=== PATIENT | female | born 1960 | race Caucasian/White ===

== ENCOUNTER → 2025-07-03 14:18 | Outpatient (REF) | payer OTHER, SELFPAY | LOC: WDC 14:18 | PROVIDERS: ATTENDING PHYSICIAN Nurse Practitioner Family; FAMILY PHYSICIAN Internal Medicine Geriatric Medicine | DX: Z12.31 Encounter for screening mammogram for malignant neoplasm of breast (principal); Z00.00 Encounter for general adult medical examination without abnormal findings; Z78.0 Asymptomatic menopausal state | CPT/HCPCS: 77063; 77067; 77080 ==